=== PATIENT | female | born 1960 | race Caucasian/White ===

== ENCOUNTER 2017-02-08 12:31 | Inpatient (IN) ==
[2017-02-08] MEDS ORDERED: FUROSEMIDE 40 MG/4 ML VIAL IV STA (14:13)
[2017-02-08] MEDS ORDERED: MORPHINE 2 MG/1 ML SYRINGE IV STA (14:13)
[2017-02-08] MEDS ORDERED: ALBUTEROL/IPRATROPIUM 3 ML NEB RESP TX STA (14:13)
[2017-02-08] MEDS ORDERED: NITROGLYCERIN 2% OINT 1 INCH/GM PACK TOP STA (14:13)
[2017-02-08] MEDS ORDERED: ALUM/MAG/SIMETH/LIDO VISC 1:1 30 ML BOTTLE PO STA (14:13)
[2017-02-08] MEDS ORDERED: methylPREDNISolone SOD SUC 125 MG/2 ML VIAL IV STA (14:13)
[2017-02-08] MEDS ORDERED: ASPIRIN 325 MG TABLET PO STA (14:13)
[2017-02-08] MEDS ORDERED: ONDANSETRON 4 MG/2 ML VIAL IV STA (14:13)
--- NOTE | 2017-02-08 14:27 | Emergency Department Note ---
Kitty Rivers Mantricia, am scribing for, and in the presence of, Bill Rodarte MD 14:11. Aster Rivers Charles R, MD, personally performed the services described in this documentation, ascribed by Skye Tang in my presence, and it is both accurate and complete 427 . Arrival - Arrival Chief Complaint: Chest Pain Stated Complaint: sob, chest tightness, numbness and tingling in [facility] ED Nursing Triage Note: Chest tightness onset on Thur - pt states that the pain is worse today Mode of Arrival: Ambulatory Limitations: No Limitations Source: Patient Time Seen by Provider: 02/08/17 13:35 - History of Present Illness HPI Narrative: Pt is a 56 y/o white female arriving to ED by EMS with c/o tightness in her chest that onset 6 days ago. Pt states the tightness is accompanied with SOB, nausea, sweats, and tingling down her LUE. She reports that the symptoms are similar to when she had a stent placed [address] Eduardo. Pt has a PMHx of sleep apnea and DM for 41 years. She also complains of a chronic cough that she has not been able to get rid of. Pt is also talking with a whisper; she noticed this after she came back home after a trip to [place]. Pt is allergic to Naproxen; however, she is able to to take aspirin. She reports no other complaints to ED. Onset (ago): day(s) Consistency: constant Severity: mild Date of Last Menstrual Period: hyster Allergies/Adverse Reactions: Allergies Allergy/AdvReac Type Severity Reaction Status Date / Time celecoxib [From Celebrex] Allergy ANAPHYLAXIS Verified 08/05/15 01:30 clarithromycin [From Biaxin] Allergy ANAPHYLAXIS Verified 08/05/15 01:30 ibuprofen [From Motrin] Allergy Swelling Verified 08/05/15 01:30 of Lip/Tongue/Throat naproxen [From Anaprox] Allergy Swelling Verified 08/05/15 01:30 of Lip/Tongue/Throat Sulfa (Sulfonamide Allergy HIVES Verified 08/05/15 01:30 Antibiotics) doxycycline [From Vibramycin] AdvReac Anxiety Verified 09/06/16 06:41 Home Medications: Home Medications Medication Instructions Recorded Confirmed Type DULoxetine [Cymbalta] 30 mg PO BID 08/05/15 09/06/16 History Insulin Aspart [NovoLOG] 0 unit SUBCUT .PUMP 08/05/15 09/06/16 History Isosorbide Dinitrate 20 mg PO BID 08/05/15 09/06/16 History Levothyroxine Tab [Synthroid Tab] 125 mcg PO DAILY 08/05/15 09/06/16 History Ondansetron Odt Tab [Zofran Odt] 8 mg PO DIRECTED PRN 08/05/15 09/06/16 History Ascorbic Acid [Vitamin C] 1,000 mg PO DAILY 08/31/16 09/06/16 History Calcium Carbonate/Vitamin D3 1 each PO DAILY 08/31/16 09/06/16 History [Calcium 600 + Vit D Tablet] Cyanocobalamin (Vitamin B-12) 1,000 mcg PO DAILY 09/05/16 09/06/16 History [Vitamin B-12] Gelatin 1,300 mg PO DAILY 09/05/16 09/06/16 History Lysine 1,000 mg PO BEDTIME 09/05/16 09/06/16 History Mv,Iron,Mins/Folic Acid/Biotin 1 each PO DAILY 09/05/16 09/06/16 History [Hair Formula Tablet] Polycarbophil [Fibercon] 1,250 mg PO BID 09/05/16 09/06/16 History Aspirin [Ecotrin] 325 mg PO DAILY 09/06/16 09/06/16 History Biotin 10,000 mcg PO DAILY 09/06/16 09/06/16 History Magnesium Oxide [Magnesium] 400 mg PO DAILY 09/06/16 09/06/16 History Carvedilol [Carvedilol] 6.25 mg PO BID 02/08/17 History Losartan Potassium [Losartan 25 mg PO DAILY 02/08/17 History Potassium] Montelukast Sodium [Montelukast 10 mg PO BEDTIME 02/08/17 History Sodium] Omeprazole [Omeprazole] 40 mg PO DAILY 02/08/17 History Rosuvastatin Calcium [Rosuvastatin 20 mg PO MOWEFR 02/08/17 History Calcium] Triamterene/Hydrochlorothiazid 1 each PO QAM 02/08/17 History [Triamterene-Hctz 37.5-25 mg Tb] Review of System - Review of System 12 point system: reviewed and no additional remarkable complaints except as stated - Review of System Constitutional: Present: other (sweats). Absent: chills, diaphoresis, fever Eyes: Absent: discharge, pain Head/Ears/Nose/Throat: Absent: earache, epistaxis Respiratory: Absent: cough, respiratory distress, wheezing Cardiovascular: Present: chest pain ("tightness"), dyspnea on exertion (and during rest). Absent: palpitations Gastrointestinal: Present: nausea (started today). Absent: abdominal pain, vomiting, diarrhea Genitourinary female: Absent: abnormal menses, dysuria Musculoskeletal: Present: arm pain (LUE tingling). Absent: back pain, leg pain , neck pain Skin: Absent: rash, lesions Neurological: Absent: headache, weakness Medical,Surgical,& Family Hx - Medical History Cardio: History of: CAD (one stent [address] EDUARDO), Hypertension, Cardiovascular Problems (high cholesterol) Endocrine: History of: Diabetes Mellitus (IDDM), Thyroid Disorder Respiratory: History of: Obstructive Sleep Apnea (CPAP INSTRUCTED PT TO BRING CPAP HX POSITIVE TB SKIN TEST YEARS AGO) Genitourinary: History of: Kidney Stones Other: History of: Anesthesia Reactions (nausea), Miscellaneous Medical Problems (hx of eliel anderson virus 2010) - Surgical History HEENT Surgeries: Surgical HX of: Eye Surgery (lasik) Abdominal Surgeries: Surgical HX of: Appendectomy Reproductive Surgeries: Surgical HX of;: Hysterectomy Orthopedic Surgeries: Surgical HX of;: Orthopedic Surgery (FOOT LEFT KNEE TRIGGER FINGER) - Social History Smoking Status: Never smoker Frequency of Alcohol Use: None Type of Drug Use: None Exam Vital Signs: Vital Signs Temperature 98.1 F 02/08/17 12:36 Pulse Rate 85 02/08/17 12:36 Respiratory Rate 20 02/08/17 12:36 Blood Pressure 120/74 02/08/17 12:36 O2 Sat by Pulse Oximetry 98 02/08/17 12:36 - General General appearance: alert, in no apparent distress, other (morbidly obese) - Head Head exam: Present: atraumatic, normocephalic, normal inspection - Eye Eye exam: Present: normal appearance, PERRL, EOMI - ENT ENT exam: Present: normal exam, normal oropharynx, mucous membranes moist, TM's normal bilaterally, normal external ear exam - Neck Neck exam: Present: normal inspection, full ROM, trachea midline. Absent: tenderness - Chest Chest inspection: Present: normal inspection, symmetric chest wall rise. Absent : tenderness - Respiratory Respiratory exam: Present: wheezes (expiratory) - Cardiovascular Cardiovascular exam: Present: regular rate, normal rhythm, normal heart sounds - Abdominal Exam Abdominal exam: Present: soft, normal bowel sounds. Absent: distention, tenderness, guarding, rebound - Extremities Exam Extremities exam: Present: normal inspection, full ROM, normal capillary refill , other (+1 LE edema). Absent: tenderness - Back Exam Back exam: Present: normal inspection, full ROM. Absent: tenderness - Neurological Exam Neurological exam: Present: alert, oriented X3, CN II-XII intact, normal gait, reflexes normal - Psychiatric Psychiatric exam: Present: normal affect, normal mood - Skin Skin exam: Present: warm, dry, intact, normal color Course - Consultations Consultation #1: Dr Amador will admit pt Time: 15:38 Results - Labs CBC & BMP: 02/08/17 13:46 02/08/17 13:46 Lab Results: I have reviewed the patients labs Critical Care Time Critical Care Time: Yes Total Critical Care Time: 60 Disposition Clinical Impression: Chest pain, Exertional dyspnea, Atypical chest pain, Laryngitis Case discussed with: patient, patient's family Disposition: Still a Patient Condition: Stable Time of Disposition: 15:37
[2017-02-08 14:34] LABS: Basophils % 0.4 % (0.0-0.8); Eosinophils # 0.3 10*3/uL (0.0-0.87); Eosinophils % 3.9 % (0.00-10.9); Hematocrit 41.5 VOL% (35.7-47.0); Hemoglobin 14.3 GM/DL (12.0-16.0); Immature Granulocytes % 0.5 %; Immature Granulocytes Absolute 0.04 #; Lymphocytes # 2.2 10*3/uL (1.4-4.0); Lymphocytes % 28.6 % (21.3-54.2); Mean Corpuscular HGB Conc 34.5 GM/DL (32-36); Mean Corpuscular Hemoglobin 30 PG (27-34); Mean Corpuscular Volume 87.2 FL (87-102); Monocytes # 0.8 10*3/uL (0.11-0.8); Monocytes % 10.4 % (1.7-12.7); Neutrophils # 4.3 10*3/uL (1.4-7.4); Neutrophils % 56.2 % (38.7-73.9); Platelet Count 251 T/CUMM (130-400); Red Blood Count 4.76 MC/CUMM (3.8-5.5); Red Cell Distribution Width 12.5 % (9.3-17.3); White Blood Count 7.6 T/CUMM (4-12)
[2017-02-08] MEDS ORDERED: ONDANSETRON 4 MG/2 ML VIAL ONE (14:34)
[2017-02-08] MEDS ORDERED: FUROSEMIDE 40 MG/4 ML VIAL ONE (14:34)
[2017-02-08] MEDS ORDERED: NITROGLYCERIN 2% OINT 1 INCH/GM PACK TOP ONE (14:34)
[2017-02-08] MEDS ORDERED: methylPREDNISolone SOD SUC 125 MG/2 ML VIAL ONE (14:35)
[2017-02-08] MEDS ORDERED: ASPIRIN 325 MG TABLET ONE (14:35)
[2017-02-08] MEDS ORDERED: ALUM/MAG/SIMETH/LIDO VISC 1:1 30 ML BOTTLE PO ONE (14:35)
[2017-02-08] MEDS ORDERED: MORPHINE 2 MG/1 ML SYRINGE ONE (14:35)
[2017-02-08 14:37] LABS: Albumin 3.8 G/DL (3.4-5.0); Bilirubin,Total 0.6 MG/DL (0.2-1.0); Calcium 9.3 MG/DL (8.5-10.1); Osmolality,Calculated 283.7 MOS/KG (273-304); Potassium 3.9 MMOL/L (3.5-5.1); Total Protein 6.5 G/DL (6.4-8.3)
[2017-02-08 14:43] LABS: D-Dimer <= 0.5 MG/L FEU; PT Patient Result 10.5 SECS
[2017-02-08 14:44] LABS: Magnesium 2.2 MG/DL (1.8-2.4)
--- NOTE | 2017-02-08 14:44 | XRay Report ---
XR chest 1V portable Indication: Chest pain. Comparison: Chest x-ray 08/31/2016 Technique: Portable AP chest was performed. Findings: Heart size, mediastinal contour, and hilar structures demonstrate no significant abnormalities. The lung parenchyma is clear. Bones and soft tissues demonstrate no significant abnormalities. Impression: 1. No evidence of acute pathology. 02/08/2017 2:41 PM PROCEDURE INTERPRETED AT [facility] DEPARTMENT OF RADIOLOGY Final Report Signed by: Dr. Mynor Bridges
[2017-02-08 14:46] LABS: Apearance,Urine CLEAR (Clear); Bacteria,Urine Occasional /HPF (Few); Bilirubin,Urine Negative (Negative); Blood, Urine Negative (Negative); Glucose,Urine (UA) Negative (Negative); Ketones,Urine Negative (Negative); Mucus,Urine Occasional /LPF (Occasional); Nitrite,Urine Negative (Negative); Protein,Urine Negative; RBC,Urine <1 /HPF (0-4); Squamous Epithelial Cell,Urine Occasional /HPF (0-10); Urine Color Straw (Yellow); Urine Specific Gravity 1.004 (1.001-1.035); Urine Urobilinogen < 2.0 EU/DL (0.2-1.0); WBC,Urine 1 /HPF (0-6)
--- NOTE | 2017-02-08 17:18 | Internal Med History&Physical ---
Assessment and Plan (1) Chest pain Status: Acute Assessment and plan: 56-year-old female admitted to acute care * Chest pain. Patient has pain for 6 days which is exertional pressure-like and similar to the pain she has had in the past when she had a stent placed in 2010. Despite all these her enzymes are negative and there are no EKG changes. She has multiple risk factors and needs to be screened. She will be admitted. Cardiology will be consulted. Her pain did improve on placing nitroglycerin patch on her chest wall. * Type 1 diabetes on insulin pump. Will continue current management. Patient is quite comfortable using her insulin pump and sliding scale * Hypertension. Blood pressure is stable * Hyperlipidemia. Will check lipid profile. * Hypothyroidism. She will be continued on current treatment * Hoarseness. She has had this problem off and on for the last few months. Will get ENT evaluation * Gastroesophageal reflux disease. She will continue current treatment * Discussed with patient and her mother Current Visit: Yes (2) Coronary artery disease Status: Acute Current Visit: Yes (3) Diabetes Status: Acute Current Visit: Yes (4) Hypertension Status: Acute Current Visit: Yes (5) Hypothyroidism Status: Acute Current Visit: Yes (6) Exertional dyspnea Status: Acute Current Visit: Yes (7) Laryngitis Status: Acute Current Visit: Yes History of Present Illness Chief complaint: Chest tightness and pain associated with shortness of breath History of present illness: Ms. Chan is a 56 year old female with history of multiple medical problems including coronary artery disease status post angioplasty, hypertension, type 1 diabetes on insulin pump. She presented to the emergency room with chest tightness which has been going on for past 5-6 days. It is accompanied by shortness of breath and also nausea and sweating. She has had some tingling going down her left upper extremity. Pain becomes worse when she walks. She thinks her pain is similar to the pain she had in 2010 when she required a stent to her LAD. Dr. Eduardo is her regular chart writer. She was going to work till this morning. She is also having hoarseness. She felt her sinuses are doing worse. She is also having problems with elevated blood sugars for past week. She denies any falls or trauma. She denies any pleuritic type chest pain. Home Medications Medication Instructions Recorded Confirmed Type DULoxetine [Cymbalta] 30 mg PO BID 08/05/15 02/08/17 History Insulin Aspart [NovoLOG] 0 unit SUBCUT .PUMP 08/05/15 02/08/17 History Isosorbide Dinitrate 20 mg PO BID 08/05/15 02/08/17 History Levothyroxine Tab [Synthroid Tab] 125 mcg PO QAM 08/05/15 02/08/17 History Ondansetron Odt Tab [Zofran Odt] 8 mg PO Q4H PRN 08/05/15 02/08/17 History Ascorbic Acid [Vitamin C] 1,000 mg PO QAM 08/31/16 02/08/17 History Calcium Carbonate/Vitamin D3 1 each PO QAM 08/31/16 02/08/17 History [Calcium 600 + Vit D Tablet] Cyanocobalamin (Vitamin B-12) 1,000 mcg PO QAM 09/05/16 02/08/17 History [Vitamin B-12] Gelatin 1,300 mg PO QAM 09/05/16 02/08/17 History Lysine 1,000 mg PO BEDTIME 09/05/16 02/08/17 History Mv,Iron,Mins/Folic Acid/Biotin 1 each PO QAM 09/05/16 02/08/17 History [Hair Formula Tablet] Aspirin [Ecotrin] 325 mg PO QPM 09/06/16 02/08/17 History Biotin 10,000 mcg PO QAM 09/06/16 02/08/17 History Magnesium Oxide [Magnesium] 400 mg PO QAM 09/06/16 02/08/17 History Carvedilol [Carvedilol] 6.25 mg PO BID 02/08/17 02/08/17 History Losartan Potassium [Losartan 25 mg PO QAM 02/08/17 02/08/17 History Potassium] Montelukast Sodium [Montelukast 10 mg PO BEDTIME 02/08/17 02/08/17 History Sodium] Omeprazole [Omeprazole] 40 mg PO QAM 02/08/17 02/08/17 History Rosuvastatin Calcium [Rosuvastatin 20 mg PO MOWEFR 02/08/17 02/08/17 History Calcium] Triamterene/Hydrochlorothiazid 0.5 tablet PO QAM 02/08/17 02/08/17 History [Triamterene-Hctz 37.5-25 mg Tb] Allergies Allergy/AdvReac Type Severity Reaction Status Date / Time celecoxib [From Celebrex] Allergy ANAPHYLAXIS Verified 08/05/15 01:30 clarithromycin [From Biaxin] Allergy ANAPHYLAXIS Verified 08/05/15 01:30 ibuprofen [From Motrin] Allergy Swelling Verified 08/05/15 01:30 of Lip/Tongue/Throat naproxen [From Anaprox] Allergy Swelling Verified 08/05/15 01:30 of Lip/Tongue/Throat Sulfa (Sulfonamide Allergy HIVES Verified 08/05/15 01:30 Antibiotics) doxycycline [From Vibramycin] AdvReac Anxiety Verified 09/06/16 06:41 Medical,Surgical,& Family Hx - Medical History Cardio: History of: CAD (one stent [address] EDUARDO), Hypertension, Cardiovascular Problems (high cholesterol) Psychological: History of: Depression Neurology: History of: Peripheral Neuropathy (Diabetic) Endocrine: History of: Diabetes Mellitus (IDDM), Dyslipidemia, Thyroid Disorder Respiratory: History of: Obstructive Sleep Apnea (CPAP INSTRUCTED PT TO BRING CPAP HX POSITIVE TB SKIN TEST YEARS AGO) Genitourinary: History of: Kidney Stones Other: History of: Anesthesia Reactions (nausea), Miscellaneous Medical Problems (hx of eliel anderson virus 2010) - Surgical History HEENT Surgeries: Surgical HX of: Eye Surgery (lasik) Abdominal Surgeries: Surgical HX of: Appendectomy Reproductive Surgeries: Surgical HX of;: Hysterectomy Orthopedic Surgeries: Surgical HX of;: Orthopedic Surgery (FOOT LEFT KNEE TRIGGER FINGER) - Social History Smoking Status: Never smoker Frequency of Alcohol Use: None Type of Drug Use: None Marital Status: Single Lives With:: Alone Functional capacity: independent ambulation 12 point system: reviewed and no additional remarkable complaints except as stated (As mentioned in HPI) Exam - Constitutional Vitals: Period Temp Pulse Resp BP Sys/Morgan Pulse Ox Last 24 Hr 73 16 136/89 97 Exam: Examination: GENERAL: NAD. HEENT: PERRLA. EOMI. Mucous membranes are moist. Patient's speech is quite hoarse NECK: Neck is supple. No JVD. No carotid bruit. No thyromegaly. CVS: Regular rate and rhythm. S1 and S2 are normal. RESPIRATORY: Lungs are clear. No rales or rhonchi. ABDOMEN: Soft and nontender. Bowel sounds are present. No hepatosplenomegaly. EXT: No edema. Peripheral pulses are present. GRADALL OPERATOR: Patient is awake, alert and oriented to time place and person. Cranial nerves II through XII are grossly intact. Motor strength is 5 over 5 both upper and lower extremities. SKIN: Warm and dry. MSK: No obvious deformity. Results - Labs CBC & BMP: 02/08/17 13:46 02/08/17 13:46 Lab Results: I have reviewed the past 24 hour labs
[2017-02-08] MEDS ORDERED: ONDANSETRON ODT 4 MG TABLET PO PRN (18:11)
[2017-02-08] MEDS ORDERED: GLUCAGON 1 MG VIAL IM PRN (18:11)
[2017-02-08] MEDS ORDERED: ACETAMINOPHEN 325 MG TABLET PO PRN (18:11)
[2017-02-08] MEDS ORDERED: ALBUTEROL/IPRATROPIUM 3 ML NEB RESP TX PRN (18:11)
[2017-02-08] MEDS ORDERED: ONDANSETRON 4 MG/2 ML VIAL IV PRN (18:11)
[2017-02-08] MEDS ORDERED: DEXTROSE 50% 25 GM/50 ML VIAL IV PRN (18:11)
[2017-02-08] MEDS: INSULIN REGULAR 100 UNIT/ML SUBCUT SCH ×2 (18:51→21:15)
[2017-02-08] MEDS: NITROGLYCERIN 2% OINT 1 INCH/GM PACK TOP SCH (18:51)
[2017-02-08] MEDS ORDERED: INSULIN LISPRO 100 UNIT/ML SUBCUT SCH (19:00)
[2017-02-08] MEDS ORDERED: ASPIRIN EC 325 MG TABLET PO SCH (19:00)
[2017-02-08] MEDS: MORPHINE 2 MG/1 ML SYRINGE IV PRN (19:02)
[2017-02-08] MEDS: SODIUM CHLORIDE 0.9% 1,000 ML IV SCH (19:03)
[2017-02-08] MEDS: ROSUVASTATIN 20 MG TABLET PO SCH (19:09)
[2017-02-08] MEDS: ENOXAPARIN 100 MG/ML SYRINGE SUBCUT SCH (19:10)
[2017-02-08] MEDS ORDERED: ENOXAPARIN 40 MG/0.4 ML SYRINGE SUBCUT SCH (21:00)
[2017-02-08] MEDS: CARVEDILOL 6.25 MG TABLET PO SCH (21:01)
[2017-02-08] MEDS: MONTELUKAST 10 MG TABLET PO SCH (21:01)
[2017-02-08] MEDS: DOCUSATE SODIUM 100 MG CAPSULE PO SCH ×2 (21:01→21:02)
[2017-02-08] MEDS: DULoxetine 30 MG CAPSULE PO SCH (21:01)
[2017-02-08] MEDS: ISOSORBIDE DINITRATE 20 MG TABLET PO SCH (21:01)
[2017-02-09] MEDS: NITROGLYCERIN 2% OINT 1 INCH/GM PACK TOP SCH ×5 (00:40→23:38)
[2017-02-09 06:46] LABS: Basophils % 0.2 % (0.0-0.8); Hematocrit 41.5 VOL% (35.7-47.0); Hemoglobin 14.4 GM/DL (12.0-16.0); Immature Granulocytes % 1.3 %; Immature Granulocytes Absolute 0.16 #; Lymphocytes % 7.7 % (21.3-54.2); Mean Corpuscular HGB Conc 34.7 GM/DL (32-36); Mean Corpuscular Hemoglobin 31 PG (27-34); Mean Corpuscular Volume 88.3 FL (87-102); Monocytes # 0.2 10*3/uL (0.11-0.8); Monocytes % 1.5 % (1.7-12.7); Neutrophils # 11.2 10*3/uL (1.4-7.4); Neutrophils % 89.3 % (38.7-73.9); Platelet Count 241 T/CUMM (130-400); Red Cell Distribution Width 12.5 % (9.3-17.3); White Blood Count 12.5 T/CUMM (4-12)
[2017-02-09] MEDS: ENOXAPARIN 100 MG/ML SYRINGE SUBCUT SCH ×2 (07:19→18:34)
[2017-02-09 07:32] LABS: Hypochromasia 2+; Microcytosis 1+
--- NOTE | 2017-02-09 07:44 | EKG Report ---
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
[2017-02-09 07:51] LABS: Albumin 3.6 G/DL (3.4-5.0); Bilirubin,Total 0.7 MG/DL (0.2-1.0); Calcium 8.9 MG/DL (8.5-10.1); Magnesium 2.3 MG/DL (1.8-2.4); Osmolality,Calculated 296.2 MOS/KG (273-304); Potassium 4.8 MMOL/L (3.5-5.1); Total Protein 6.4 G/DL (6.4-8.3)
[2017-02-09] MEDS: INSULIN REGULAR 100 UNIT/ML SUBCUT SCH ×4 (08:35→21:23)
[2017-02-09] MEDS ORDERED: [UNRECOGNIZED DRUG - OTHER] PO SCH (09:00)
[2017-02-09] MEDS: ASPIRIN EC 81 MG TABLET PO SCH (10:23)
[2017-02-09] MEDS: LOSARTAN 25 MG TABLET PO SCH (10:23)
[2017-02-09] MEDS: DOCUSATE SODIUM 100 MG CAPSULE PO SCH ×2 (10:23→21:21)
[2017-02-09] MEDS: ISOSORBIDE DINITRATE 20 MG TABLET PO SCH ×2 (10:23→21:20)
[2017-02-09] MEDS: TRIAMTERENE/HCTZ 37.5-25 MG TABLET PO SCH (10:24)
--- NOTE | 2017-02-09 11:45 | Physician Query Form ---
CLICK EDIT DOCUMENT TO SELECT QUERY ANSWER --> OK --> SIGN Lindy Solis RN Clinical Youth Teacher W) [phone] (f) [phone] [email or web address]: Make your selection(s) from the choices in EACH section by typing an "x" and enter comments in the comment section. Please use your independent medical judgment in providing your response. This request does not imply that any particular answer is desired or expected. CLINICAL INDICATORS: (Providers should not edit this section) Based on lab results of creatinine of 0.90 on admission and increased to 1.50 with a GFR of 44. Pt. treated with IV fluids. Clarify which of the following most accurately represents the patient's renal status: ( ) Acute kidney injury (non-traumatic) ( ) Acute renal failure ( ) Acute renal failure with underlying Chronic Kidney Disease (CKD) - please provide stage below ( ) CKD - please provide stage below ( ) Other, please specify: ( x) Clinically unable to determine Chronic Kidney Disease Stages Source: National Kidney Disease Foundation ( ) Stage I (eGFR > or = 90) ( ) Stage II (eGFR 60 - 89) ( ) Stage III (eGFR 30 - 59) ( ) Stage IV (eGFR 15 - 29) ( ) Stage V (eGFR < 15 or dialysis) COMMENTS: PLEASE ALSO DOCUMENT RESPONSE IN PROGRESS NOTES AND/OR DISCHARGE SUMMARY Use of terms such as suspected, likely, or probable (associated with a specific diagnosis that is being evaluated, monitored, or treated as if it exists) are acceptable and can be restated in the discharge summary if not ruled out. MTDD
--- NOTE | 2017-02-09 12:20 | Internal Med Progress Note ---
Assessment and Plan (1) Chest pain Status: Acute Assessment and plan: 56-year-old female admitted to acute care * Chest pain. Negative enzymes. Cardiology is going to see the patient. * Type 1 diabetes on insulin pump. Blood glucose are quite high. She was given a steroid injection in the ER yesterday * Hypertension. Blood pressure is stable * Hyperlipidemia. Continue treatment * Hypothyroidism. She will be continued on current treatment * Hoarseness. Better after getting the steroid injection * Gastroesophageal reflux disease. She will continue current treatment * Discussed with patient and her mother Current Visit: Yes (2) Coronary artery disease Status: Acute Current Visit: Yes (3) Diabetes Status: Acute Current Visit: Yes (4) Hypertension Status: Acute Current Visit: Yes (5) Hypothyroidism Status: Acute Current Visit: Yes (6) Exertional dyspnea Status: Acute Current Visit: Yes (7) Laryngitis Status: Acute Current Visit: Yes Internal Medicine - PN: Subj Interval history: She is still having some discomfort in the chest. No nausea or vomiting. Her blood sugars are high. She got a steroid injection in the emergency room Exam (Progress Note) - Constitutional Vitals: Period Temp Pulse Resp BP Sys/Morgan Pulse Ox Last 24 Hr 97.7 F-98.4 F 73-91 16-22 91-157/50-91 90-100 Exam: Examination: GENERAL: NAD. HEENT: PERRLA. EOMI. NECK: Neck is supple. CVS: Regular rate and rhythm. S1 and S2 are normal. RESPIRATORY: Lungs are clear. No rales or rhonchi. ABDOMEN: Soft and nontender. EXT: No edema. Peripheral pulses are present. REGISTRAR NURSES' REGISTRY: Nonfocal SKIN: Warm and dry. MSK: No obvious deformity. Results - Labs CBC & BMP: 02/09/17 04:00 02/09/17 07:00 Lab Results: I have reviewed the past 24 hour labs
--- NOTE | 2017-02-09 12:24 | Event Note ---
Patient underwent Cardiolite stress testing. She attempted treadmill portion and achieved stage III Vernon protocol and 79% of her predicted minimal target heart rate. Moderate dyspnea on exertion, chest heaviness at maximum heart rate. Both of which resolved with rest. Achieved 7.1 METs. No arrythmia noted. Downslopping ST changes noted inferiorly at maximum heart rate. Blood pressure responded appropriately. Now, to nuclear medicine for completion of final scan. Dr. Alberto to read, interpret and advise.
--- NOTE | 2017-02-09 12:24 | Cardiology Consult Note ---
Divya Rivers April RN, am scribing for, and in the presence of, Cesilia Lloyd NP 11:55. Assessment and Plan - Time spent with patient Time spent with patient: Greater than 30 minutes (Due to assessment, planning, documentation, medication review) (1) Chest pain Status: Acute Current Visit: Yes (2) TY on CPAP Status: Chronic Current Visit: Yes (3) Dyslipidemia Status: Chronic Current Visit: Yes (4) Coronary artery disease Status: Chronic Current Visit: Yes (5) Diabetes Status: Chronic Current Visit: Yes (6) Exertional dyspnea Status: Acute Current Visit: Yes (7) Hypertension Status: Chronic Current Visit: Yes (8) Laryngitis Status: Acute Current Visit: Yes History of Present Illness - Data of Consult Patient: known to practice within the last 3 years Consult date: 02/08/17 Requesting Physician: Bill Rodarte - Consult Narrative Reason for consult: Chest pain History of present illness: Surgical Instrument Repair Specialist: Dr. Eduardo PCP: Dr. Francois Ms. Chan is a 56 year old female who is routinely followed by Dr. Eduardo with history of CAD, dyslipidemia, IDDM (insulin pump), peripheral neuropathy to left foot, GERD, and TY on CPAP. March 31, 2011 she had a drug-eluting stent of the LAD by Dr. Eduardo. Stress test done April 15, 2014 Dr. Eduardo in his office was read as probably normal with no evidence of inducible ischemia and no significant change since the prior study in 2011. Other surgical history includes sinus surgery, laser surgery for retinopathy of her eyes, hysterectomy, appendectomy, bilateral cataract, left ankle skin graft , bilateral carpal tunnel, bilateral hand trigger finger, plantar fascia surgery to her left foot, with some tooth extraction, right forearm, and right hammertoe. Family history is positive for father with diabetes, CAD, AAA, dyslipidemia, and hypertension in mother with atrial fibrillation, cancer, hypertension, and thyroid disease. She reports is a lifetime non-smoker. Ms. Chan reports she was in her usual state of health until about a week ago when she began having squeezing/grabbing type pain to her left chest. She reports it is a constant pain that is worse when walking and lying down. She rates it as an 8 on a scale of 1-10 when it was at its worst. The pain is reproducible, she denies any radiation to her back, arms, or jaw. She also has tingling of her left arm, diaphoresis, nausea, and dyspnea on exertion that is associated with this pain. She says is the same type pain she had before getting her stents in 2010. She reports she did not get the Sinemet when she first began having symptoms because she had not arch support on Monday, but the symptoms continued to get worse so she sought treatment yesterday afternoon. In the emergency department she was given a GI cocktail as well as Nitro-Bid topical ointment. She said this did ease the pain somewhat, but did not completely relieve it. She is also given Lasix 40 mg IV 1 in the emergency department. Creatinine is increased from 0.9 on admission to 1.5 this morning, we will continue to monitor this. She also reports she has had pain to her left groin for several months now. She has seen several doctors about this and a few weeks ago had a CT that she was told was normal. She is hoarse, and states she has been this way for a couple of months. She thinks this is related to pollen. EKG on admission showed sinus rhythm with heart rate of 79. Blood pressures been stable, this morning 114/56. Troponin has been negative 3. D-dimer was negative. Currently the patient is resting in bed in no acute distress. She continues to have the same type chest pain she has been having, reports it is a 5 or 6 on a scale of 1-10. She also continues to have a tingling down her left arm. She is lying down and denies any shortness of breath, diaphoresis or nausea at present. She denies having had any palpitations or dizziness presently or in the past. director of event marketing currently shows sinus rhythm with heart rates in the 80s. We will order nuclear stress test on patient. Patient is scheduled for stress test this morning. CC: Jemal Francois MD - Home Medications and Allergies Home Medications: Home Medications Medication Instructions Recorded Confirmed Type DULoxetine [Cymbalta] 30 mg PO BID 08/05/15 02/08/17 History Insulin Aspart [NovoLOG] 0 unit SUBCUT .PUMP 08/05/15 02/08/17 History Isosorbide Dinitrate 20 mg PO BID 08/05/15 02/08/17 History Levothyroxine Tab [Synthroid Tab] 125 mcg PO QAM 08/05/15 02/08/17 History Ondansetron Odt Tab [Zofran Odt] 8 mg PO Q4H PRN 08/05/15 02/08/17 History Ascorbic Acid [Vitamin C] 1,000 mg PO QAM 08/31/16 02/08/17 History Calcium Carbonate/Vitamin D3 1 each PO QAM 08/31/16 02/08/17 History [Calcium 600 + Vit D Tablet] Cyanocobalamin (Vitamin B-12) 1,000 mcg PO QAM 09/05/16 02/08/17 History [Vitamin B-12] Gelatin 1,300 mg PO QAM 09/05/16 02/08/17 History Lysine 1,000 mg PO BEDTIME 09/05/16 02/08/17 History Mv,Iron,Mins/Folic Acid/Biotin 1 each PO QAM 09/05/16 02/08/17 History [Hair Formula Tablet] Aspirin [Ecotrin] 325 mg PO QPM 09/06/16 02/08/17 History Biotin 10,000 mcg PO QAM 09/06/16 02/08/17 History Magnesium Oxide [Magnesium] 400 mg PO QAM 09/06/16 02/08/17 History Carvedilol [Carvedilol] 6.25 mg PO BID 02/08/17 02/08/17 History Losartan Potassium [Losartan 25 mg PO QAM 02/08/17 02/08/17 History Potassium] Montelukast Sodium [Montelukast 10 mg PO BEDTIME 02/08/17 02/08/17 History Sodium] Omeprazole [Omeprazole] 40 mg PO QAM 02/08/17 02/08/17 History Rosuvastatin Calcium [Rosuvastatin 20 mg PO MOWEFR 02/08/17 02/08/17 History Calcium] Triamterene/Hydrochlorothiazid 0.5 tablet PO QAM 02/08/17 02/08/17 History [Triamterene-Hctz 37.5-25 mg Tb] Allergies/Adverse Reactions: Allergies Allergy/AdvReac Type Severity Reaction Status Date / Time celecoxib [From Celebrex] Allergy ANAPHYLAXIS Verified 08/05/15 01:30 clarithromycin [From Biaxin] Allergy ANAPHYLAXIS Verified 08/05/15 01:30 ibuprofen [From Motrin] Allergy Swelling Verified 08/05/15 01:30 of Lip/Tongue/Throat naproxen [From Anaprox] Allergy Swelling Verified 08/05/15 01:30 of Lip/Tongue/Throat Sulfa (Sulfonamide Allergy HIVES Verified 08/05/15 01:30 Antibiotics) doxycycline [From Vibramycin] AdvReac Anxiety Verified 09/06/16 06:41 - Constitutional Constitutional: Present: as per HPI - EENT Eyes: Present: requires corrective lense Ears: Absent: decreased hearing, tinnitus Nose, mouth and throat: Present: epistaxis, headache(s), hoarseness. Absent: dysphagia, neck pain, sore throat - Cardiovascular Cardiovascular: Present: chest pain at rest, chest pain with activity, diaphoresis, dyspnea on exertion. Absent: edema, radiating jaw, neck or arm pain, lightheadedness, orthopnea, palpitations - Respiratory Respiratory: Present: cough (Chronic), dyspnea on exertion. Absent: hemoptysis , wheezing - Gastrointestinal Gastrointestinal: Present: nausea. Absent: abdominal pain, constipation, diarrhea, hematemesis, hematochezia, melena, vomiting - Genitourinary Genitourinary: Absent: dysuria, hematuria - Musculoskeletal Musculoskeletal: Present: back pain. Absent: limited range of motion - Neurological Neurological: Present: headache(s). Absent: confusion, dizziness, frequent falls, syncope - Psychiatric Psychiatric: Absent: anxiety, confusion - Endocrine Endocrine: Present: fatigue Medical,Surgical,& Family Hx - Medical History Cardio: History of: CAD (one stent [address] DR EDUARDO), Hypertension Psychological: History of: Depression Neurology: History of: Peripheral Neuropathy (Diabetic) HEENT: History of: Eye Problem Endocrine: History of: Diabetes Mellitus (IDDM) (Insulin pump), Dyslipidemia, Thyroid Disorder Respiratory: History of: Obstructive Sleep Apnea (Reports uses CPAP nightly) Genitourinary: History of: Kidney Stones Gastrointestinal: History of: GERD Other: History of: Anesthesia Reactions (nausea), Miscellaneous Medical Problems (hx of eliel anderson virus 2010) - Surgical History Cardiac Surgeries: Sugical HX of: Cardiac Catheterization (2011 with stent of the LAD) HEENT Surgeries: Surgical HX of: Eye Surgery (lasik), Tonsilectomy & Adenoidectomy Abdominal Surgeries: Surgical HX of: Appendectomy Reproductive Surgeries: Surgical HX of;: Hysterectomy Orthopedic Surgeries: Surgical HX of;: Orthopedic Surgery (FOOT LEFT KNEE TRIGGER FINGER ankle) - Family History Family History: Reports;: Family Cancer (Mother), Family Diabetes (Father), Family Heart Disease (Father), Family Hypertension (Father and mother), Family Stroke (Father) - Social History Smoking Status: Never smoker Have you smoked in the last 12 months: No Frequency of Alcohol Use: None Type of Drug Use: None Marital Status: Single Lives With:: Parent Functional capacity: independent ambulation Physical Examination Vital Signs Temp Pulse Resp BP Pulse Ox 98.1 F 85 20 120/74 98 02/08/17 12:36 02/08/17 12:36 02/08/17 12:36 02/08/17 12:36 02/08/17 12:36 General: Present: Appears Well, No Apparent Distress HEENT: Present: PERRL, Mucus Membranes Moist Neck: Present: Supple Neck, Midline Trachea, No Bruit Cardiac: Present: Reg Rate and Rhythm, No Murmur Lungs: Present: Normal Breath Sounds, No Wheeze, Rales, Rhonchi Neuro: Absent: Resting Tremor, Essential Tremor Abdomen: Present: Soft, Active Bowel Sounds, Non-Tender. Absent: Distended Skin: Present: Clear Extremities: Present: No Edema, Normal Upper Extr. Pulses, Normal Lower Extr. Pulses Result/EKG - Labs CBC & BMP: 02/09/17 04:00 02/09/17 07:00 Lab Results: I have reviewed the past 24 hour labs Labs: Laboratory Results - last 24 hr 02/08/17 02/08/17 02/08/17 13:46 13:46 13:46 WBC RBC Hgb Hct MCV MCH MCHC RDW Plt Count MPV Neut % (Auto) Lymph % (Auto) [place] % (Auto) Eos % (Auto) Baso % (Auto) Neut # (Auto) Lymph # (Auto) [place] # (Auto) Eos # (Auto) Baso # (Auto) Immature Gran % Nucleated RBC % Immature Gran # Nucleated RBCs # Hypochromasia Microcytosis INR 1.0 PT Patient/Control Mix 10.5 D-Dimer, Quantitative <= 0.5 Sodium 138 Potassium 3.9 Chloride 100 Carbon Dioxide 28 Anion Gap 13.9 BUN 23 H Creatinine 0.90 GFR Calculation 82 BUN/Creatinine Ratio 25.00 H Glucose 182 H POC Glucose Calculated Osmolality 283.7 Calcium 9.3 Magnesium Total Bilirubin 0.60 AST 35 ALT 76 H Alkaline Phosphatase 85 Troponin I B-Natriuretic Peptide 8 Total Protein 6.5 Albumin 3.8 Globulin 2.7 Albumin/Globulin Ratio 1.4 Lipase Urine Color Urine Appearance Urine pH Ur Specific [place] Urine Protein Urine Glucose (UA) Urine Ketones Urine Blood Urine Nitrate Urine Bilirubin Urine Urobilinogen Urine Leukocytes Urine RBC Urine WBC Ur Squamous Epith Cells Urine Bacteria Urine Mucus Ur Culture Indicated? 02/08/17 02/08/17 02/08/17 13:46 13:46 13:46 WBC 7.6 RBC 4.76 Hgb 14.3 Hct 41.5 MCV 87.2 MCH 30 MCHC 34.5 RDW 12.5 Plt Count 251 MPV 11.0 Neut % (Auto) 56.2 Lymph % (Auto) 28.6 [place] % (Auto) 10.4 Eos % (Auto) 3.9 Baso % (Auto) 0.4 Neut # (Auto) 4.3 Lymph # (Auto) 2.2 [place] # (Auto) 0.8 Eos # (Auto) 0.3 Baso # (Auto) 0.0 Immature Gran % 0.5 Nucleated RBC % 0.0 Immature Gran # 0.04 Nucleated RBCs # 0.00 Hypochromasia Microcytosis INR PT Patient/Control Mix D-Dimer, Quantitative Sodium Potassium Chloride Carbon Dioxide Anion Gap BUN Creatinine GFR Calculation BUN/Creatinine Ratio Glucose POC Glucose Calculated Osmolality Calcium Magnesium Total Bilirubin AST ALT Alkaline Phosphatase Troponin I < 0.015 B-Natriuretic Peptide Total Protein Albumin Globulin Albumin/Globulin Ratio Lipase Urine Color Straw Urine Appearance Clear Urine pH 7.0 Ur Specific [place] 1.004 Urine Protein Negative Urine Glucose (UA) Negative Urine Ketones Negative Urine Blood Negative Urine Nitrate Negative Urine Bilirubin Negative Urine Urobilinogen < 2.0 H Urine Leukocytes Negative Urine RBC <1 Urine WBC 1 Ur Squamous Epith Cells Occasional Urine Bacteria Occasional Urine Mucus Occasional Ur Culture Indicated? Not indicated 02/08/17 02/08/17 02/08/17 14:15 18:21 18:22 WBC RBC Hgb Hct MCV MCH MCHC RDW Plt Count MPV Neut % (Auto) Lymph % (Auto) [place] % (Auto) Eos % (Auto) Baso % (Auto) Neut # (Auto) Lymph # (Auto) [place] # (Auto) Eos # (Auto) Baso # (Auto) Immature Gran % Nucleated RBC % Immature Gran # Nucleated RBCs # Hypochromasia Microcytosis INR PT Patient/Control Mix D-Dimer, Quantitative Sodium Potassium Chloride Carbon Dioxide Anion Gap BUN Creatinine GFR Calculation BUN/Creatinine Ratio Glucose POC Glucose 151 H Calculated Osmolality Calcium Magnesium 2.2 Total Bilirubin AST ALT Alkaline Phosphatase Troponin I < 0.015 B-Natriuretic Peptide Total Protein Albumin Globulin Albumin/Globulin Ratio Lipase 107.0 Urine Color Urine Appearance Urine pH Ur Specific [place] Urine Protein Urine Glucose (UA) Urine Ketones Urine Blood Urine Nitrate Urine Bilirubin Urine Urobilinogen Urine Leukocytes Urine RBC Urine WBC Ur Squamous Epith Cells Urine Bacteria Urine Mucus Ur Culture Indicated? 02/08/17 02/08/17 02/09/17 19:51 21:13 04:00 WBC 12.5 H D RBC 4.70 Hgb 14.4 Hct 41.5 MCV 88.3 MCH 31 MCHC 34.7 RDW 12.5 Plt Count 241 MPV 11.0 Neut % (Auto) 89.3 H Lymph % (Auto) 7.7 L [place] % (Auto) 1.5 L Eos % (Auto) 0.0 Baso % (Auto) 0.2 Neut # (Auto) 11.2 H Lymph # (Auto) 1.0 L [place] # (Auto) 0.2 Eos # (Auto) 0.0 Baso # (Auto) 0.0 Immature Gran % 1.3 Nucleated RBC % 0.0 Immature Gran # 0.16 Nucleated RBCs # 0.00 Hypochromasia 2+ Microcytosis 1+ INR PT Patient/Control Mix D-Dimer, Quantitative Sodium Potassium Chloride Carbon Dioxide Anion Gap BUN Creatinine GFR Calculation BUN/Creatinine Ratio Glucose POC Glucose 345 H Calculated Osmolality Calcium Magnesium Total Bilirubin AST ALT Alkaline Phosphatase Troponin I < 0.015 B-Natriuretic Peptide Total Protein Albumin Globulin Albumin/Globulin Ratio Lipase Urine Color Urine Appearance Urine pH Ur Specific [place] Urine Protein Urine Glucose (UA) Urine Ketones Urine Blood Urine Nitrate Urine Bilirubin Urine Urobilinogen Urine Leukocytes Urine RBC Urine WBC Ur Squamous Epith Cells Urine Bacteria Urine Mucus Ur Culture Indicated? 02/09/17 02/09/17 02/09/17: 07:00 07:20 WBC RBC Hgb Hct MCV MCH MCHC RDW Plt Count MPV Neut % (Auto) Lymph % (Auto) [place] % (Auto) Eos % (Auto) Baso % (Auto) Neut # (Auto) Lymph # (Auto) [place] # (Auto) Eos # (Auto) Baso # (Auto) Immature Gran % Nucleated RBC % Immature Gran # Nucleated RBCs # Hypochromasia Microcytosis INR PT Patient/Control Mix D-Dimer, Quantitative Sodium 134 L Potassium 4.8 Chloride 96 L Carbon Dioxide 29 Anion Gap 13.8 BUN 37 H D Creatinine 1.50 H GFR Calculation 44 BUN/Creatinine Ratio 24.00 H Glucose 450 H POC Glucose 440 H 395 H Calculated Osmolality 296.2 Calcium 8.9 Magnesium 2.3 Total Bilirubin 0.70 AST 28 ALT 68 H Alkaline Phosphatase 77 Troponin I B-Natriuretic Peptide Total Protein 6.4 Albumin 3.6 Globulin 2.8 Albumin/Globulin Ratio 1.2 Lipase Urine Color Urine Appearance Urine pH Ur Specific [place] Urine Protein Urine Glucose (UA) Urine Ketones Urine Blood Urine Nitrate Urine Bilirubin Urine Urobilinogen Urine Leukocytes Urine RBC Urine WBC Ur Squamous Epith Cells Urine Bacteria Urine Mucus Ur Culture Indicated? 02/09/17 Unknown WBC RBC Hgb Hct MCV MCH MCHC RDW Plt Count MPV Neut % (Auto) Lymph % (Auto) [place] % (Auto) Eos % (Auto) Baso % (Auto) Neut # (Auto) Lymph # (Auto) [place] # (Auto) Eos # (Auto) Baso # (Auto) Immature Gran % Nucleated RBC % Immature Gran # Nucleated RBCs # Hypochromasia Microcytosis INR PT Patient/Control Mix D-Dimer, Quantitative Sodium Potassium Chloride Carbon Dioxide Anion Gap BUN Creatinine GFR Calculation BUN/Creatinine Ratio Glucose POC Glucose Calculated Osmolality Calcium Magnesium Total Bilirubin AST ALT Alkaline Phosphatase Troponin I B-Natriuretic Peptide 18 Total Protein Albumin Globulin Albumin/Globulin Ratio Lipase Urine Color Urine Appearance Urine pH Ur Specific [place] Urine Protein Urine Glucose (UA) Urine Ketones Urine Blood Urine Nitrate Urine Bilirubin Urine Urobilinogen Urine Leukocytes Urine RBC Urine WBC Ur Squamous Epith Cells Urine Bacteria Urine Mucus Ur Culture Indicated? - Diagnostic Findings Procedure: Chest x-ray: report reviewed by me - EKG EKG results: interpreted by me EKG shows: sinus rhythm Gabino Rivers Bonnie E, NP, personally performed the services described in this documentation, ascribed by Chelsi Stokes RN in my presence, and it is both accurate and complete [id number] .
--- NOTE | 2017-02-09 12:40 | Consultation ---
Assessment and Plan - Time spent with patient Time spent with patient: Greater than 30 minutes (1) Hoarseness Status: Acute Assessment and plan: The underlying cause for her hoarseness seems to be laryngitis that is possibly chronically irritative versus viral. I recommend continued reflux precautions and vocal hygiene. Additionally she would probably benefit from evaluation by speech therapy that I will put in for. I recommend some nebulized steroids followed by nystatin swish and swallow to help calm down her laryngeal edema and hopefully prevent her from any secondary oral pharyngeal or laryngeal candidiasis. I would like to see her as an outpatient a week or 2 after she is discharged so that I can evaluate her under stroboscopy. Thank you very much for this consult I will follow this patient intermittently during her stay and will gladly see her as an outpatient as well. Current Visit: Yes (2) Laryngitis Status: Acute Current Visit: Yes (3) TY on CPAP Status: Chronic Current Visit: Yes History of Present Illness - Data of Consult Patient: new to practice Consult date: 02/09/17 Requesting Physician: Jemal Francois - Consult Narrative Reason for consult: Hoarseness History of present illness: Ms. Chan is a 56 year old female 2 month history of hoarseness started after returning home from a trip from [place] during a high pollen season. She has noticed continued hoarseness that changes in severity. She is recently been admitted for chest pain and has noted an exacerbation of her hoarseness. ENT is consulted for evaluation and treatment. She notes nothing makes her hoarseness better or worse she has not had this problem before. CC: Jemal Francois MD - Home Medications and Allergies Home Medications: Home Medications Medication Instructions Recorded Confirmed Type DULoxetine [Cymbalta] 30 mg PO BID 08/05/15 02/08/17 History Insulin Aspart [NovoLOG] 0 unit SUBCUT .PUMP 08/05/15 02/08/17 History Isosorbide Dinitrate 20 mg PO BID 08/05/15 02/08/17 History Levothyroxine Tab [Synthroid Tab] 125 mcg PO QAM 08/05/15 02/08/17 History Ondansetron Odt Tab [Zofran Odt] 8 mg PO Q4H PRN 08/05/15 02/08/17 History Ascorbic Acid [Vitamin C] 1,000 mg PO QAM 08/31/16 02/08/17 History Calcium Carbonate/Vitamin D3 1 each PO QAM 08/31/16 02/08/17 History [Calcium 600 + Vit D Tablet] Cyanocobalamin (Vitamin B-12) 1,000 mcg PO QAM 09/05/16 02/08/17 History [Vitamin B-12] Gelatin 1,300 mg PO QAM 09/05/16 02/08/17 History Lysine 1,000 mg PO BEDTIME 09/05/16 02/08/17 History Mv,Iron,Mins/Folic Acid/Biotin 1 each PO QAM 09/05/16 02/08/17 History [Hair Formula Tablet] Aspirin [Ecotrin] 325 mg PO QPM 09/06/16 02/08/17 History Biotin 10,000 mcg PO QAM 09/06/16 02/08/17 History Magnesium Oxide [Magnesium] 400 mg PO QAM 09/06/16 02/08/17 History Carvedilol [Carvedilol] 6.25 mg PO BID 02/08/17 02/08/17 History Losartan Potassium [Losartan 25 mg PO QAM 02/08/17 02/08/17 History Potassium] Montelukast Sodium [Montelukast 10 mg PO BEDTIME 02/08/17 02/08/17 History Sodium] Omeprazole [Omeprazole] 40 mg PO QAM 02/08/17 02/08/17 History Rosuvastatin Calcium [Rosuvastatin 20 mg PO MOWEFR 02/08/17 02/08/17 History Calcium] Triamterene/Hydrochlorothiazid 0.5 tablet PO QAM 02/08/17 02/08/17 History [Triamterene-Hctz 37.5-25 mg Tb] Allergies/Adverse Reactions: Allergies Allergy/AdvReac Type Severity Reaction Status Date / Time celecoxib [From Celebrex] Allergy ANAPHYLAXIS Verified 08/05/15 01:30 clarithromycin [From Biaxin] Allergy ANAPHYLAXIS Verified 08/05/15 01:30 ibuprofen [From Motrin] Allergy Swelling Verified 08/05/15 01:30 of Lip/Tongue/Throat naproxen [From Anaprox] Allergy Swelling Verified 08/05/15 01:30 of Lip/Tongue/Throat Sulfa (Sulfonamide Allergy HIVES Verified 08/05/15 01:30 Antibiotics) doxycycline [From Vibramycin] AdvReac Anxiety Verified 09/06/16 06:41 12 point system: reviewed and no additional remarkable complaints except as stated Medical,Surgical,& Family Hx - Medical History Cardio: History of: CAD (one stent [address] BOO), Hypertension, Cardiovascular Problems (high cholesterol) Psychological: History of: Depression Neurology: History of: Peripheral Neuropathy (Diabetic) HEENT: History of: Eye Problem, HEENT Problems Endocrine: History of: Diabetes Mellitus (IDDM) (Insulin pump), Dyslipidemia, Thyroid Disorder Respiratory: History of: Obstructive Sleep Apnea (Reports uses CPAP nightly) Genitourinary: History of: Kidney Stones Gastrointestinal: History of: GERD Other: History of: Anesthesia Reactions (nausea), Miscellaneous Medical Problems (hx of eliel anderson virus 2010) - Surgical History Cardiac Surgeries: Sugical HX of: Cardiac Catheterization (2011 with stent of the LAD) HEENT Surgeries: Surgical HX of: Eye Surgery (lasik), Tonsilectomy & Adenoidectomy Abdominal Surgeries: Surgical HX of: Appendectomy Reproductive Surgeries: Surgical HX of;: Hysterectomy Orthopedic Surgeries: Surgical HX of;: Orthopedic Surgery (FOOT LEFT KNEE TRIGGER FINGER ankle) - Family History Family History: Reports;: Family Cancer (Mother), Family Diabetes (Father), Family Heart Disease (Father), Family Hypertension (Father and mother), Family Stroke (Father) - Social History Smoking Status: Never smoker Frequency of Alcohol Use: None Type of Drug Use: None Exam - Constitutional Vitals: Period Temp Pulse Resp BP Sys/Morgan Pulse Ox Last 24 Hr 97.7 F-98.4 F 73-91 16-22 91-157/50-91 90-100 General appearance: normal weight, no acute distress - Head Head exam: Present: normal inspection, normocephalic - Eye Eye exam: Present: EOMI Pupils: Present: MENDEZ - ENT ENT exam: Present: normal exam, normal external ear exam, normal oropharynx, other (Bedside laryngoscopy reveals bilateral vocal fold movement motion with diffuse vocal fold edema and decreased mucosal wave that is difficult to evaluate without the ability for stroboscopy. She does have a markedly large tongue base consistent with her severe sleep apnea in which she uses a CPAP for nightly that is humidified.) - Neck Neck exam: Present: normal inspection - Respiratory Respiratory exam: Present: other (No shortness of breath or difficulty breathing ) - GI/Abdominal GI/Abdominal exam: Present: soft - Extremities Exam Extremities exam: Present: normal inspection, normal capillary refill - Neurological Exam Neurological exam: Present: alert, oriented X3, CN II-XII intact - Psychiatric Psychiatric exam: Present: normal affect, normal mood - Skin Skin exam: Present: normal color, warm Results - Labs CBC & BMP: 02/09/17 04:00 02/09/17 07:00 Lab Results: I have reviewed the past 24 hour labs
[2017-02-09] MEDS: DULoxetine 30 MG CAPSULE PO SCH ×2 (13:10→21:22)
[2017-02-09] MEDS: CALCIUM (CARBONATE)/VITAMIN D 600 MG-400 UNIT TABLET PO SCH (13:10)
[2017-02-09] MEDS: CARVEDILOL 6.25 MG TABLET PO SCH ×2 (13:10→21:21)
[2017-02-09] MEDS: MAGNESIUM OXIDE 400 MG TABLET PO SCH (13:11)
[2017-02-09] MEDS: LEVOTHYROXINE 125 MCG TABLET PO SCH (13:11)
[2017-02-09] MEDS ORDERED: TICAGRELOR 90 MG TABLET PO ONE (13:14)
[2017-02-09] MEDS: PANTOPRAZOLE 40 MG VIAL IV SCH (13:17)
--- NOTE | 2017-02-09 14:03 | XRay Report ---
Exam: Chest 2 views Date: February 09, 2017 at 7:07 AM Comparison: Chest one view portable February 08, 2017 Reason: Shortness of breath Findings: The cardiac silhouette is normal in size. There may be minimal atelectasis at the lung bases, but the lungs otherwise appear clear. No pneumothorax or pleural effusion is identified. No acute osseous process is seen. Impression: Possible minimal atelectasis at the lung bases. PROCEDURE INTERPRETED AT [facility] DEPARTMENT OF RADIOLOGY Final Report Signed by: Dr. Jmaes Jesus
[2017-02-09] MEDS ORDERED: diphenhydrAMINE CAP 25 MG CAPSULE PO ONE (16:08)
--- NOTE | 2017-02-09 16:14 | Nuclear Medicine Report ---
EXERCISE STRESS TEST Test is interpreted by Dr. Jaret Alberto. INDICATION: Chest pain. PROCEDURE: At rest, the patient was injected with 10 mCi of 99-Technetium labeled Sestamibi and rest images were obtained. The patient then exercise according to the [place] treadmill stress protocol. As she was unable to achieve the predicted submaximal heart rate, at peak stress, Cardiolite was injected. After Cardiolite injection, 30 mCi of 99-Technetium labeled Sestamibi was injected and post-stress images were obtained. FINDINGS: At rest, sinus rhythm, 89 beats per minute without ST-T changes, blood pressure was 122/67 mmHg. The patient exercise for 8 minutes and 6 seconds, achieving a peak heart rate of 130 beats per minute, 79% of predicted of submaximal heart rate. At peak stress, there was [address] depression, which has been resolved with rest. The peak blood pressure was 160/84 mmHg. There was no chest pain. Rest and post stress gated and perfusion images were reviewed. The left ventricle is normal in size, the end- diastolic volume is 64 cc, the end-systolic volume is 15 cc, the calculated left ventricular ejection fraction is 77%. There are no focal wall motion abnormalities. At rest, there is moderate size area of mildly diffused activity in the inferior region, which improved post stress. There is also an area of normal photon activity in the anterior/apical region, which is borderline photopenic post stress. There are some motion artifacts on the rest images. The findings are borderline for ischemia, there is no evidence of old myocardial disease. CONCLUSIONS: 1. NONDIAGNOSTIC TREDMILL STRESS EKG DUE TO LOW PEAK HEART RATE ACHIEVED. TORRES TREADMILL STRESS SCORE 4. PHARMACOLOGICAL STRESS TEST PERFORMED. 2. NORMAL LEFT VENTRICULAR SIZE, NORMAL SYSTOLIC FUNCTION, WITH NO EVIDENCE OF OLD MYOCARDIAL DISEASE, WITH BORDERLINE FINDINGS FOR MYOCARDIAL ISCHEMIA. 3. THIS IS A LOW TO MODERATE RISK TEST. Procedure performed and interpreted at [facility] Department of Radiology. [facility]
[2017-02-09] MEDS: SODIUM CHLORIDE 0.9% 1,000 ML IV SCH (16:45)
[2017-02-09] MEDS: MORPHINE 2 MG/1 ML SYRINGE IV PRN (18:35)
[2017-02-09] MEDS ORDERED: diphenhydrAMINE CAP 25 MG CAPSULE PO PRN (18:40)
[2017-02-09] MEDS ORDERED: TICAGRELOR 90 MG TABLET PO SCH (21:00)
[2017-02-09] MEDS: MONTELUKAST 10 MG TABLET PO SCH (21:21)
[2017-02-10 05:20] LABS: Basophils % 0.3 % (0.0-0.8); Eosinophils # 0.1 10*3/uL (0.0-0.87); Eosinophils % 1.1 % (0.00-10.9); Hematocrit 38.3 VOL% (35.7-47.0); Hemoglobin 12.8 GM/DL (12.0-16.0); Immature Granulocytes % 0.6 %; Immature Granulocytes Absolute 0.07 #; Lymphocytes # 2.7 10*3/uL (1.4-4.0); Lymphocytes % 23.2 % (21.3-54.2); Mean Corpuscular HGB Conc 33.4 GM/DL (32-36); Mean Corpuscular Hemoglobin 30 PG (27-34); Mean Corpuscular Volume 88.9 FL (87-102); Mean Platelet Volume 11.2 FL (9.6-12.0); Monocytes % 8.1 % (1.7-12.7); Neutrophils # 7.9 10*3/uL (1.4-7.4); Neutrophils % 66.7 % (38.7-73.9); Platelet Count 219 T/CUMM (130-400); Red Blood Count 4.31 MC/CUMM (3.8-5.5); Red Cell Distribution Width 12.5 % (9.3-17.3); White Blood Count 11.8 T/CUMM (4-12)
[2017-02-10 05:46] LABS: Calcium 8.2 MG/DL (8.5-10.1); Magnesium 2.1 MG/DL (1.8-2.4); Osmolality,Calculated 296.4 MOS/KG (273-304); Potassium 3.8 MMOL/L (3.5-5.1)
[2017-02-10] MEDS: NITROGLYCERIN 2% OINT 1 INCH/GM PACK TOP SCH ×3 (06:29→19:47)
[2017-02-10] MEDS: ENOXAPARIN 100 MG/ML SYRINGE SUBCUT SCH (06:29)
--- NOTE | 2017-02-10 07:03 | EKG Report ---
Stationary ECG Study [facility] Test Date: 02/10/2017 7:02:21 AM Pat Name: BLAKE PARKS Department: Room: 264 Gender: F Telephone Clerk: BROOKE : 1960 Requested by: Pa Alberto Order Number: [id number] Reading MD: PA ALBERTO Intervals Mellen Rate: 76 P: 67 AL: 164 QRS: 70 QRSD: 92 T: 12 QT: 379 QTc: 409 Interpretive Statements SINUS RHYTHM Electronically Signed On 02-12-17 15:39:49 CDT by PA ALBERTO [email or web address]
[2017-02-10 07:57] LABS: Apearance,Urine CLEAR (Clear); Bacteria,Urine Occasional /HPF (Few); Bilirubin,Urine Negative (Negative); Blood, Urine Negative (Negative); Glucose,Urine (UA) 150 mg/dL (Negative); Ketones,Urine Negative (Negative); Nitrite,Urine Negative (Negative); Protein,Urine Negative; RBC,Urine 2 /HPF (0-4); Squamous Epithelial Cell,Urine Occasional /HPF (0-10); Urine Color Yellow (Yellow); Urine Specific Gravity 1.019 (1.001-1.035); Urine Urobilinogen < 2.0 EU/DL (0.2-1.0); WBC,Urine 53 /HPF (0-6)
--- NOTE | 2017-02-10 08:41 | Internal Med Progress Note ---
Assessment and Plan (1) Chest pain Status: Acute Assessment and plan: 56-year-old female admitted to acute care * Chest pain. Nuclear stress test noted. Continues to have pain. Probably needs a cardiac catheterization * Type 1 diabetes on insulin pump. Glucose are much better controlled * Hypertension. Blood pressure is stable * Hyperlipidemia. Continue treatment * Hypothyroidism. She will be continued on current treatment * Hoarseness. Patient was evaluated by ENT * Gastroesophageal reflux disease. She will continue current treatment * Discussed with patient and her mother Current Visit: Yes (2) Coronary artery disease Status: Chronic Current Visit: Yes (3) Diabetes Status: Chronic Current Visit: Yes (4) Hypertension Status: Chronic Current Visit: Yes (5) Hypothyroidism Status: Acute Current Visit: Yes (6) Exertional dyspnea Status: Acute Current Visit: Yes (7) Laryngitis Status: Acute Current Visit: Yes Internal Medicine - PN: Subj Interval history: She continues to have pain in the left chest. She was started on Brilinta but had a reaction. She developed hives and itching. Exam (Progress Note) - Constitutional Vitals: Period Temp Pulse Resp BP Sys/Morgan Pulse Ox Last 24 Hr 96.9 F-98.6 F 71-95 16-20 111-130/53-70 92-98 Exam: Examination: GENERAL: NAD. HEENT: PERRLA. EOMI. NECK: Neck is supple. CVS: Regular rate and rhythm. S1 and S2 are normal. RESPIRATORY: Lungs are clear. No rales or rhonchi. ABDOMEN: Soft and nontender. EXT: No edema. Peripheral pulses are present. [employer]OL [employer]CH[employer] SPECIALIST: Nonfocal SKIN: Warm and dry. Results - Labs CBC & BMP: 02/10/17 04:08 02/10/17 04:08 Lab Results: I have reviewed the past 24 hour labs
[2017-02-10] MEDS ORDERED: MAGNESIUM SULF RIDER 2 GM in PREMIX 1 EACH IV PRN (09:06)
[2017-02-10] MEDS ORDERED: POTASSIUM CHLORIDE RIDER 10 MEQ in PREMIX 1 EACH IV PRN (09:06)
[2017-02-10] MEDS ORDERED: diphenhydrAMINE CAP 25 MG CAPSULE PO ONE (09:07)
--- NOTE | 2017-02-10 09:07 | Cardiology Progress Note ---
Assessment and Plan (1) Chest pain Status: Acute Assessment and plan: 56-year-old female, presenting with nonexertional chest pain, not typical for angina, lasting for a week. Normal cardiac enzymes, EKG shows septal T-wave inversion, minimal change compared to prior EKG. Stress test showed no cardiomyopathy, has findings suggestive of borderline anteroapical ischemia. She had an LAD stent placed in 2010. -Continue aspirin, beta-xiao, nitrates, statin -Continue anticoagulation with Lovenox. -Brilinta caused rash. Was switched to Plavix yesterday -Noninvasive workup showed no high-risk features. In 2010, noninvasive evaluation was unremarkable but she ended up with an LAD stent at that time. -As she is still having chest pain, despite intensive medical treatment, we discussed risks and benefits of management options. I will obtain interventional consult, she may need LHC today. -NPO -BEE resolved. She is using insulin pump for her type 1 diabetes mellitus. She has severe hyperglycemia on admission, improved. Current Visit: Yes (2) Coronary artery disease Status: Chronic Current Visit: Yes (3) Diabetes Status: Chronic Current Visit: Yes Cardiology - PN: Subj Interval history: She is still having CP. Noninvasive workup showed no high risk features. Exam (Progress Note) - Constitutional Vitals: Period Temp Pulse Resp BP Sys/Morgan Pulse Ox Last 24 Hr 96.9 F-98.6 F 71-95 16-20 111-130/53-70 92-98 General appearance: normal weight, no acute distress - Head Head exam: Present: normal inspection, normocephalic - Eye Eye exam: Absent: conjunctival injection Pupils: Absent: dilated - ENT ENT exam: Present: normal external ear exam - Neck Neck exam: Present: normal inspection - Respiratory Respiratory exam: Present: clear to auscultation bilaterally - Cardiovascular Cardiovascular exam: Present: regular rate and rhythm - GI/Abdominal GI/Abdominal exam: Present: normal bowel sounds. Absent: distended - Extremities Exam Extremities exam: Present: normal inspection, normal capillary refill. Absent: edema - Neurological Exam Neurological exam: Present: alert, oriented X3 - Psychiatric Psychiatric exam: Present: normal affect, normal mood - Skin Skin exam: Present: normal color, warm. Absent: cyanosis Result/EKG - Labs CBC & BMP: 02/10/17 04:08 02/10/17 04:08 Lab Results: I have reviewed the past 24 hour labs Labs: Laboratory Results - last 24 hr 02/09/17 02/09/17 02/09/17 12:28 15:39 21:20 WBC RBC Hgb Hct MCV MCH MCHC RDW Plt Count MPV Neut % (Auto) Lymph % (Auto) [place] % (Auto) Eos % (Auto) Baso % (Auto) Neut # (Auto) Lymph # (Auto) [place] # (Auto) Eos # (Auto) Baso # (Auto) Immature Gran % Nucleated RBC % Immature Gran # Nucleated RBCs # Sodium Potassium Chloride Carbon Dioxide Anion Gap BUN Creatinine GFR Calculation BUN/Creatinine Ratio Glucose POC Glucose 301 H 296 H 417 H Calculated Osmolality Calcium Magnesium Urine Color Urine Appearance Urine pH Ur Specific Homer Urine Protein Urine Glucose (UA) Urine Ketones Urine Blood Urine Nitrate Urine Bilirubin Urine Urobilinogen Urine Leukocytes Urine RBC Urine WBC Ur Squamous Epith Cells Urine Bacteria Ur Culture Indicated? 02/10/17 02/10/17 02/10/17 04:08 04:08 07:36 WBC 11.8 RBC 4.31 Hgb 12.8 Hct 38.3 MCV 88.9 MCH 30 MCHC 33.4 RDW 12.5 Plt Count 219 MPV 11.2 Neut % (Auto) 66.7 Lymph % (Auto) 23.2 [place]th % (Auto) 8.1 Eos % (Auto) 1.1 Baso % (Auto) 0.3 Neut # (Auto) 7.9 H Lymph # (Auto) 2.7 [place]th # (Auto) 1.0 H Eos # (Auto) 0.1 Baso # (Auto) 0.0 Immature Gran % 0.6 Nucleated RBC % 0.0 Immature Gran # 0.07 Nucleated RBCs # 0.00 Sodium 140 Potassium 3.8 Chloride 102 Carbon Dioxide 30 Anion Gap 11.8 BUN 34 H Creatinine 1.10 H GFR Calculation 64 BUN/Creatinine Ratio 30.00 H Glucose 278 H POC Glucose 187 H Calculated Osmolality 296.4 Calcium 8.2 L Magnesium 2.1 Urine Color Urine Appearance Urine pH Ur Specific Homer Urine Protein Urine Glucose (UA) Urine Ketones Urine Blood Urine Nitrate Urine Bilirubin Urine Urobilinogen Urine Leukocytes Urine RBC Urine WBC Ur Squamous Epith Cells Urine Bacteria Ur Culture Indicated? 02/10/17 07:45 WBC RBC Hgb Hct MCV MCH MCHC RDW Plt Count MPV Neut % (Auto) Lymph % (Auto) [place]th % (Auto) Eos % (Auto) Baso % (Auto) Neut # (Auto) Lymph # (Auto) [place]th # (Auto) Eos # (Auto) Baso # (Auto) Immature Gran % Nucleated RBC % Immature Gran # Nucleated RBCs # Sodium Potassium Chloride Carbon Dioxide Anion Gap BUN Creatinine GFR Calculation BUN/Creatinine Ratio Glucose POC Glucose Calculated Osmolality Calcium Magnesium Urine Color Yellow Urine Appearance Clear Urine pH 6.0 Ur Specific Homer 1.019 Urine Protein Negative Urine Glucose (UA) 150 Urine Ketones Negative Urine Blood Negative Urine Nitrate Negative Urine Bilirubin Negative Urine Urobilinogen < 2.0 H Urine Leukocytes Moderate H Urine RBC 2 Urine WBC 53 Ur Squamous Epith Cells Occasional Urine Bacteria Occasional Ur Culture Indicated? Results to follow - EKG EKG results: interpreted by me
[2017-02-10] MEDS ORDERED: DIAZEPAM 5 MG TABLET PO ONE (09:08)
[2017-02-10] MEDS: PANTOPRAZOLE 40 MG VIAL IV SCH (10:00)
[2017-02-10] MEDS: CALCIUM (CARBONATE)/VITAMIN D 600 MG-400 UNIT TABLET PO SCH (10:24)
[2017-02-10] MEDS: CLOPIDOGREL 75 MG TABLET PO SCH (10:25)
[2017-02-10] MEDS: ISOSORBIDE DINITRATE 20 MG TABLET PO SCH ×2 (10:25→21:40)
[2017-02-10] MEDS: ASPIRIN EC 81 MG TABLET PO SCH (10:25)
[2017-02-10] MEDS: CARVEDILOL 6.25 MG TABLET PO SCH ×2 (10:25→21:40)
[2017-02-10] MEDS: LOSARTAN 25 MG TABLET PO SCH (10:25)
[2017-02-10] MEDS: LEVOTHYROXINE 125 MCG TABLET PO SCH (10:26)
[2017-02-10] MEDS ORDERED: LIDOCAINE 1% 20 ML VIAL ONE (10:27)
[2017-02-10] MEDS ORDERED: HEPARIN/NACL 0.9% 2 UNITS/ML 1,000 ML IV ONE (10:27)
[2017-02-10] MEDS ORDERED: SODIUM BICARBONATE 2.4 MEQ/5 ML VIAL ONE (10:30)
--- NOTE | 2017-02-10 10:41 | History and Physical Update ---
Sedation H&P Update - History and Physical H&P was reviewed, the patient examined and there: are no changes in the patients condition since last H&P was completed. - Dictation Physical: refer to H&P completed by admitting physician - Physical Exam Mental Status: alert and oriented Heart: regular rate and rhythm Lung: clear to auscultation Abdomen: within normal limits Vitals: within normal limits History and Physical Changes: Patient was admitted with somewhat atypical chest pain, is a high risk patient. Stress testing was marginally abnormal. I have discussed the role, risks and benefits of cardiac catheterization with the patient and she is agreeable to proceeding. She denies IVP dye allergy, no contraindication to dual antiplatelet therapy. - Sedation Plan for Sedation: moderate Patient Consent: Procedure disscussed with patient and patinet has consented., Risks and benefits were discussed with patient,including infection,, bleeding, injury to surrounding structures, seizure, temporary nerve, Patient understands and accepts potential risks/benefits and agrees to, proceed. ASA Class: III Airway Assessment: Class II: Soft palate, uvula, fauces visible
[2017-02-10] MEDS ORDERED: MIDAZOLAM 2 MG/2 ML VIAL ONE ×2 (10:44→11:02)
[2017-02-10] MEDS ORDERED: fentaNYL 100 MCG/2 ML VIAL ONE (10:44)
[2017-02-10] MEDS ORDERED: ADENOSINE 90 MG/30 ML VIAL IV ONE (11:04)
[2017-02-10] MEDS ORDERED: ZALEPLON 5 MG CAPSULE PO PRN (11:34)
[2017-02-10] MEDS ORDERED: GLUCAGON 1 MG VIAL IM PRN (11:34)
--- NOTE | 2017-02-10 12:13 | Cardiology Operative Report ---
Date of Procedure:: 02/10/17 Pre-op diagnosis: Coronary artery disease, chest pain, abnormal stress test. Post-op diagnosis: same Procedure: 1. Selective left and right coronary angiography. 2. Left heart catheterization with left ventriculogram. 3. Right iliac angiography to rule out vascular complications. 4. Application of minx hemostasis device to the right femoral arteriotomy site. Impression: 1. Moderate residual coronary artery disease. A. Patent LAD stents. B. Moderate coronary artery disease of a large branching marginal artery, with up to 50% angiographic stenosis, FFR 0.96. 2. Right dominant coronary arteries. 3. Ejection fraction 60 %. 4. Angiographically normal right iliac artery without evidence of vascular complications. Plan: 1. Medical management. Equipment: Diagnostic 6 Kiswahili JL4, JR4, pigtail catheters, Mynx. Hemodynamics: Aortic pressure 131/69 mmHg, left ventricular pressure 125/16 mmHg, LVEDP 7 mmHg Sedation: Versed 3 Milgram's, fentanyl 75 mcg Procedure: After informed consent was obtained the patient was prepped and draped in sterile fashion. The right groin was infiltrated with 1% lidocaine and the right femoral artery was accessed via modified Seldinger technique using a micropuncture needle and a 6 Kiswahili femoral arterial sheath was placed. All catheter exchanges were performed over a guidewire under fluoroscopic guidance. Diagnostic 6 Kiswahili JL4 and JR4 catheters were advanced to the left and right coronary arteries respectively and multiple cineangiograms were performed in varying degrees of obliquity and angulation. Thereafter a pigtail catheter was advanced into the left ventricle where hemodynamics were obtained followed by left ventriculogram. The patient had already been anticoagulated with Lovenox 5 hours prior to the procedure. A guiding 6 Kiswahili EBU 3.5 catheter was advanced to the left main artery. A pressure wire was used to traverse the obtuse marginal artery. Intravenous adenosine was administered over 2 minutes while fractional flow reserve measurements were recorded. At conclusion of the procedure right iliac angiography was performed to rule out vascular complications. A Mynx hemostasis device was unsuccessfully applied to the right femoral arteriotomy site. Findings: 1. The left main artery is angiographically normal. 2. The left anterior descending artery extends to the apex. There is a stent in the proximal and mid segment, both of which are patent, although there is some mild late lumen loss in the second stent. There is residual mild atheromatous disease throughout the vessel but no significant stenosis. 3. There is an intermediate ramus branch which is small and free of significant disease. 4. The circumflex artery gives rise to a large branching marginal artery. There is moderate atheromatous disease throughout this vessel with up to 50% stenosis, fractional flow reserve measurement 0.96. 5. The right coronary artery is a dominant vessel with mild luminal irregularities but no significant stenosis. 6. Ejection fraction is 60 % with normal anterior, inferior and apical wall motion. 7. No significant mitral regurgitation. 8. No significant aortic stenosis. 9. The right iliac artery is angiographically normal without evidence of vascular complications. Contrast use: Omnipaque 129 cc Complications: none Specimens removed: none Devices implanted: Mynx Anesthesia: moderate conscious sedation Surgeon / Physician: Tracy Dawkins Rebar Fabricator: none Estimated blood loss: minimal Specimens: none sent Condition: stable Disposition: floor
[2017-02-10] MEDS: DOCUSATE SODIUM 100 MG CAPSULE PO SCH ×2 (14:55→21:40)
[2017-02-10] MEDS: TRIAMTERENE/HCTZ 37.5-25 MG TABLET PO SCH (14:55)
[2017-02-10] MEDS: DULoxetine 30 MG CAPSULE PO SCH ×2 (14:55→21:40)
[2017-02-10] MEDS: MAGNESIUM OXIDE 400 MG TABLET PO SCH (14:55)
[2017-02-10] MEDS: SODIUM CHLORIDE 0.9% 1,000 ML IV SCH (14:57)
[2017-02-10] MEDS: INSULIN REGULAR 100 UNIT/ML SUBCUT SCH ×3 (14:58→21:42)
[2017-02-10] MEDS: ROSUVASTATIN 20 MG TABLET PO SCH (19:47)
[2017-02-10] MEDS: MONTELUKAST 10 MG TABLET PO SCH (21:40)
[2017-02-11] MEDS: NITROGLYCERIN 2% OINT 1 INCH/GM PACK TOP SCH ×3 (00:55→12:52)
[2017-02-11 03:13] LABS: Basophils % 0.4 % (0.0-0.8); Eosinophils # 0.2 10*3/uL (0.0-0.87); Eosinophils % 2.4 % (0.00-10.9); Hematocrit 39.6 VOL% (35.7-47.0); Hemoglobin 13.4 GM/DL (12.0-16.0); Immature Granulocytes % 0.6 %; Immature Granulocytes Absolute 0.06 #; Lymphocytes # 2.7 10*3/uL (1.4-4.0); Lymphocytes % 27.8 % (21.3-54.2); Mean Corpuscular HGB Conc 33.8 GM/DL (32-36); Mean Corpuscular Hemoglobin 30 PG (27-34); Mean Corpuscular Volume 88.6 FL (87-102); Monocytes % 10.6 % (1.7-12.7); Neutrophils # 5.7 10*3/uL (1.4-7.4); Neutrophils % 58.2 % (38.7-73.9); Platelet Count 217 T/CUMM (130-400); Red Blood Count 4.47 MC/CUMM (3.8-5.5); Red Cell Distribution Width 12.8 % (9.3-17.3); White Blood Count 9.8 T/CUMM (4-12)
[2017-02-11 03:39] LABS: Calcium 8.3 MG/DL (8.5-10.1); Magnesium 2.2 MG/DL (1.8-2.4); Osmolality,Calculated 291.1 MOS/KG (273-304); Potassium 3.9 MMOL/L (3.5-5.1)
[2017-02-11] MEDS: SODIUM CHLORIDE 0.9% 1,000 ML IV SCH (07:14)
--- NOTE | 2017-02-11 07:45 | Family Practice Progress Note ---
Family Practice - PN: Subj Interval history: Patient states she is feeling some better this morning and did not have any problems with her left heart catheterization. She was noted to have some scattered moderate disease. I note that she had pyuria on her urinalysis and her urine cultures are pending. She is sleeping soundly when I entered the room and states she is not having any chest pain. Exam (Progress Note) - Constitutional Vitals: Period Temp Pulse Resp BP Sys/Morgan Pulse Ox Last 24 Hr 97.3 F-98.3 F 67-81 14-20 114-137/56-85 93-97 Exam: Objective a well-developed white female no acute distress. She is on her CPAP. Cardiovascular: Heart rates regular without murmurs or gallops. Respiratory: The lungs clear to auscultation bilaterally. Abdomen: Abdomen soft and nontender to palpation. Results - Labs CBC & BMP: 02/11/17 02:25 02/11/17 02:25 Lab Results: I have reviewed the past 24 hour labs Assessment and Plan (1) Coronary artery disease Status: Chronic Assessment and plan: 02/11/2017: Left heart catheterization showed moderate coronary artery stenosis not requiring any further intervention. Current Visit: Yes
[2017-02-11] MEDS: INSULIN REGULAR 100 UNIT/ML SUBCUT SCH ×2 (08:15→14:14)
[2017-02-11] MEDS ORDERED: MULTIVITAMIN (CENTRUM) TABLET PO SCH (09:00)
[2017-02-11] MEDS: DULoxetine 30 MG CAPSULE PO SCH (10:14)
[2017-02-11] MEDS: ISOSORBIDE DINITRATE 20 MG TABLET PO SCH (10:14)
[2017-02-11] MEDS: CLOPIDOGREL 75 MG TABLET PO SCH (10:14)
[2017-02-11] MEDS: MAGNESIUM OXIDE 400 MG TABLET PO SCH (10:14)
[2017-02-11] MEDS: LEVOTHYROXINE 125 MCG TABLET PO SCH (10:14)
[2017-02-11] MEDS: TRIAMTERENE/HCTZ 37.5-25 MG TABLET PO SCH (10:14)
[2017-02-11] MEDS: DOCUSATE SODIUM 100 MG CAPSULE PO SCH (10:14)
[2017-02-11] MEDS: CARVEDILOL 6.25 MG TABLET PO SCH (10:15)
[2017-02-11] MEDS: LOSARTAN 25 MG TABLET PO SCH (10:15)
[2017-02-11] MEDS: ASPIRIN EC 81 MG TABLET PO SCH (10:15)
[2017-02-11] MEDS: CALCIUM (CARBONATE)/VITAMIN D 600 MG-400 UNIT TABLET PO SCH (10:15)
[2017-02-11] MEDS: PANTOPRAZOLE 40 MG VIAL IV SCH (10:16)
[2017-02-11] MEDS ORDERED: PANTOPRAZOLE 40 MG TABLET PO SCH (11:00)
--- NOTE | 2017-02-11 11:35 | Cardiology Progress Note ---
Assessment and Plan (1) Chest pain Status: Acute Assessment and plan: 56-year-old female, presenting with nonexertional chest pain, not typical for angina, lasting for a week. Normal cardiac enzymes, EKG shows septal T-wave inversion, minimal change compared to prior EKG. Stress test showed no cardiomyopathy, has findings suggestive of borderline anteroapical ischemia. She had an LAD stent placed in 2010. -CAD. Patent prior LAD stent, moderate disease, FFR was normal. Continue intensive risk factor modification -Continue aspirin, Plavix, beta-xiao, nitrates, statin -We tried to Brilinta, which caused rash. No issues with Plavix so far. -BEE resolved. -Follow-up with Dr. Eduardo in 2 weeks. Current Visit: Yes (2) Coronary artery disease Status: Chronic Current Visit: Yes (3) Diabetes Status: Chronic Current Visit: Yes Cardiology - PN: Subj Interval history: She is feeling fine. The right groin was the little bit after the cardiac catheterization, they stopped. Blood sugar is now back to normal, with insulin pump. No chest pain. Exam (Progress Note) - Constitutional Vitals: Period Temp Pulse Resp BP Sys/Morgan Pulse Ox Last 24 Hr 97.3 F-98.3 F 67-81 14-20 114-137/56-85 93-97 General appearance: normal weight, over weight - Head Head exam: Present: normal inspection, normocephalic - Eye Eye exam: Absent: conjunctival injection Pupils: Absent: dilated - ENT ENT exam: Present: normal external ear exam - Neck Neck exam: Present: normal inspection - Respiratory Respiratory exam: Present: clear to auscultation bilaterally. Absent: chest wall tenderness - Cardiovascular Cardiovascular exam: Present: regular rate and rhythm - GI/Abdominal GI/Abdominal exam: Present: normal bowel sounds. Absent: distended - Extremities Exam Extremities exam: Present: normal inspection, normal capillary refill. Absent: edema - Back Exam Back exam: Present: normal inspection - Neurological Exam Neurological exam: Present: alert, oriented X3 - Psychiatric Psychiatric exam: Present: normal affect, normal mood - Skin Skin exam: Present: normal color, warm. Absent: cyanosis Result/EKG - Labs CBC & BMP: 02/11/17 02:25 02/11/17 02:25 Lab Results: I have reviewed the past 24 hour labs Labs: Laboratory Results - last 24 hr 02/10/17 02/10/17 02/11/17 17:04 21:11 02:25 WBC 9.8 RBC 4.47 Hgb 13.4 Hct 39.6 MCV 88.6 MCH 30 MCHC 33.8 RDW 12.8 Plt Count 217 MPV 11.0 Neut % (Auto) 58.2 Lymph % (Auto) 27.8 [place] % (Auto) 10.6 Eos % (Auto) 2.4 Baso % (Auto) 0.4 Neut # (Auto) 5.7 Lymph # (Auto) 2.7 [place] # (Auto) 1.0 H Eos # (Auto) 0.2 Baso # (Auto) 0.0 Immature Gran % 0.6 Nucleated RBC % 0.0 Immature Gran # 0.06 Nucleated RBCs # 0.00 Sodium Potassium Chloride Carbon Dioxide Anion Gap BUN Creatinine GFR Calculation BUN/Creatinine Ratio Glucose POC Glucose 222 H 329 H Calculated Osmolality Calcium Magnesium 02/11/17 02/11/17 02/11/17 02:25 03:01 07:24 WBC RBC Hgb Hct MCV MCH MCHC RDW Plt Count MPV Neut % (Auto) Lymph % (Auto) [place] % (Auto) Eos % (Auto) Baso % (Auto) Neut # (Auto) Lymph # (Auto) [place] # (Auto) Eos # (Auto) Baso # (Auto) Immature Gran % Nucleated RBC % Immature Gran # Nucleated RBCs # Sodium 142 Potassium 3.9 Chloride 105 Carbon Dioxide 26 Anion Gap 14.9 BUN 22 H D Creatinine 0.90 GFR Calculation 82 BUN/Creatinine Ratio 24.00 H Glucose 198 H POC Glucose 216 H 181 H Calculated Osmolality 291.1 Calcium 8.3 L Magnesium 2.2 - EKG EKG results: interpreted by me Specialty Discharge - Follow Up or Referrals - Speciality Discharge Instructions Cardiology Instructions: FU with dr. Eduardo in 2 weeks
[2017-02-11 12:38] VITALS: BP 123/69
--- NOTE | 2017-02-11 13:50 | Discharge Summary ---
Hospital Course - Hospital Course Hospital Course: Patient is a 56-year-old type I diabetic presented to hospital with chest pain. Patient was seen and evaluated by cardiology and underwent left heart catheterization that showed some scattered stenotic lesions but nothing requiring acute intervention. Patient did not have evidence of an PR based on her cardiac isoenzymes. Patient's feeling well post catheterization is ready to go home. Diagnosis - Discharge Diagnosis (1) Coronary artery disease Status: Chronic Discharge Plan - Discharge Data Disposition: Disch To Home/Self Care Condition at Discharge: Stable Discharge Diet: advance to your usual diet, diabetic diet Activity: resume usual activities as tolerated Hygiene: no restrictions Weight Bearing at Discharge: full weight bearing Contact your physician if you experience:: fever over 101 - Discharge Medications New Acetaminophen Tab [Tylenol Tab] 650 mg PO Q6H PRN tablet PRN Reason: Fever > 100.4 Or Headache Aspirin EC Tab 81 mg PO DAILY tablet Calcium (Carb)/Vit D 600-400 [Caltrate 600 + D] 1 tablet PO QAM tablet Clopidogrel [Plavix] 75 mg PO DAILY #30 tablet DULoxetine [Cymbalta] 30 mg PO BID capsule Insulin Lispro [HumaLOG] 1 unit SUBCUT .PUMP unit Isosorbide Dinitrate [Isordil] 20 mg PO BID tablet Losartan [Cozaar] 25 mg PO QAM tablet Magnesium Oxide 400 mg PO QAM tablet Montelukast Tab [Singulair Tab] 10 mg PO BEDTIME tablet Multivitamin (Centrum) [Centrum Tab] 1 tablet PO DAILY tablet Ondansetron Odt Tab [Zofran Odt] 8 mg PO Q4H PRN tablet PRN Reason: Nausea/Vomiting Triamterene/Hctz 37.5-25 Tab [Maxzide 37.5-25] 0.5 tablet PO QAM tablet Carvedilol [Coreg] 6.25 mg PO BID tablet Levothyroxine Tab [Synthroid Tab] 125 mcg PO QAM tablet Rosuvastatin [Crestor] 20 mg PO MOWEFR tablet Continue Insulin Aspart [NovoLOG] 0 unit SUBCUT .PUMP Biotin 10,000 mcg PO QAM Ascorbic Acid [Vitamin C] 1,000 mg PO QAM Gelatin 1,300 mg PO QAM Cyanocobalamin (Vitamin B-12) [Vitamin B-12] 1,000 mcg PO QAM Lysine 1,000 mg PO BEDTIME Omeprazole 40 mg PO QAM Discontinued Ondansetron Odt Tab [Zofran Odt] 8 mg PO Q4H PRN PRN Reason: Nausea/Vomiting Levothyroxine Tab [Synthroid Tab] 125 mcg PO QAM Isosorbide Dinitrate 20 mg PO BID DULoxetine [Cymbalta] 30 mg PO BID Magnesium Oxide [Magnesium] 400 mg PO QAM Montelukast Sodium [Montelukast Sodium] 10 mg PO BEDTIME Carvedilol [Carvedilol] 6.25 mg PO BID Rosuvastatin Calcium [Rosuvastatin Calcium] 20 mg PO MOWEFR Calcium Carbonate/Vitamin D3 [Calcium 600 + Vit D Tablet] 1 each PO QAM Mv,Iron,Mins/Folic Acid/Biotin [Hair Formula Tablet] 1 each PO QAM Aspirin [Ecotrin] 325 mg PO QPM Triamterene/Hydrochlorothiazid [Triamterene-Hctz 37.5-25 mg Tb] 0.5 tablet PO QAM Losartan Potassium [Losartan Potassium] 25 mg PO QAM - Follow Up or Referral Follow Up: Jemal Francois MD [Primary Care Provider] - 2 Weeks - Forms/Instructions Exam - Constitutional Vitals: Period Temp Pulse Resp BP Sys/Morgan Pulse Ox Last 24 Hr 97.3 F-98.4 F 70-81 14-20 114-137/60-85 95-97 Exam: Objective a well-developed white female no acute distress. She is on her CPAP. Cardiovascular: Heart rates regular without murmurs or gallops. Respiratory: The lungs clear to auscultation bilaterally. Abdomen: Abdomen soft and nontender to palpation. Discharge Results Procedures and tests throughout hospitalization: Pending Orders 02/10/17 Urine Culture Routine 02/10/17 09:16 CL heart Routine 02/12/17 04:00 BMP w/ Mg [Basic Metabolic Panel w/Mg] IN AM CBC [Comp Blood Count Auto Diff] IN AM 02/13/17 04:00 BMP w/ Mg [Basic Metabolic Panel w/Mg] IN AM CBC [Comp Blood Count Auto Diff] IN AM Labs on day of discharge: Labs from last 24 hours 02/11/17 02/11/17 02/11/17 11:16 07:24 03:01 WBC RBC Hgb Hct MCV MCH MCHC RDW Plt Count MPV Neut % (Auto) Lymph % (Auto) [place] % (Auto) Eos % (Auto) Baso % (Auto) Neut # (Auto) Lymph # (Auto) [place] # (Auto) Eos # (Auto) Baso # (Auto) Immature Gran % Nucleated RBC % Immature Gran # Nucleated RBCs # Sodium Potassium Chloride Carbon Dioxide Anion Gap BUN Creatinine GFR Calculation BUN/Creatinine Ratio Glucose POC Glucose 216 H 181 H 216 H Calculated Osmolality Calcium Magnesium 02/11/17 02/11/17 02/10/17 02:25 02:25 21:11 WBC 9.8 RBC 4.47 Hgb 13.4 Hct 39.6 MCV 88.6 MCH 30 MCHC 33.8 RDW 12.8 Plt Count 217 MPV 11.0 Neut % (Auto) 58.2 Lymph % (Auto) 27.8 [place] % (Auto) 10.6 Eos % (Auto) 2.4 Baso % (Auto) 0.4 Neut # (Auto) 5.7 Lymph # (Auto) 2.7 [place] # (Auto) 1.0 H Eos # (Auto) 0.2 Baso # (Auto) 0.0 Immature Gran % 0.6 Nucleated RBC % 0.0 Immature Gran # 0.06 Nucleated RBCs # 0.00 Sodium 142 Potassium 3.9 Chloride 105 Carbon Dioxide 26 Anion Gap 14.9 BUN 22 H D Creatinine 0.90 GFR Calculation 82 BUN/Creatinine Ratio 24.00 H Glucose 198 H POC Glucose 329 H Calculated Osmolality 291.1 Calcium 8.3 L Magnesium 2.2 02/10/17 17:04 WBC RBC Hgb Hct MCV MCH MCHC RDW Plt Count MPV Neut % (Auto) Lymph % (Auto) [place] % (Auto) Eos % (Auto) Baso % (Auto) Neut # (Auto) Lymph # (Auto) [place] # (Auto) Eos # (Auto) Baso # (Auto) Immature Gran % Nucleated RBC % Immature Gran # Nucleated RBCs # Sodium Potassium Chloride Carbon Dioxide Anion Gap BUN Creatinine GFR Calculation BUN/Creatinine Ratio Glucose POC Glucose 222 H Calculated Osmolality Calcium Magnesium Preliminary micro results at discharge 02/10/17 Unknown Urine Culture - Preliminary Urine,Clean Catch No Growth at 24 hours. DS: Provider Date of admission: 02/08/17 15:58 Primary care physician: Jemal Francois MD Attending physician on admission: Jemal Francois MD Consults: 02/08/17 18:11 Consult to Case Mgmt/Social Srvs [CONS] Routine Reason for Case Mgmt/Social Srvs: Discharge Planning Consult to Physician [CONS] Routine Comment: Chest pain Consulting Provider: Cardiology - [facility] When should Consulting Provider be notified: In am Consult to Specialist Group: Cardiology Person Notified: KAT Date Notified: 02/09/17 Time Notified: 08:40 Consult to Physician [CONS] Routine Comment: Hoarse voice Consulting Provider: Nestor Robbins When should Consulting Provider be notified: In am Consult to Specialist Group: ENT Person Notified: ANNY Date Notified: 02/09/17 Time Notified: 08:45 Discharging clinician: Tomás Mccoy MD Expected date of discharge: 02/11/17
== END 2017-02-11 16:54 | disposition home or self-care (01) | DRG 287 ==
LOC: N.ED 12:31 → N.EDINP 15:58 → N.TELES 17:10
PROVIDERS: ADMIT Internal Medicine; ATTEND Internal Medicine
PROC: CLCCHCL (ICD-10-PCS; 2017-02-10 11:45)
PROC: CLWWIRE (2017-02-10 11:45)